=== PATIENT | female | born 1940 | race Two or more races ===

== ENCOUNTER 2021-07-04 11:27 | Emergency (ER) | payer MEDICARE, OTHER ==
[~2021-07-04] VITALS: Ht 157.5 cm; Wt 62.1 kg
--- NOTE | 2021-07-04 11:33 | NUR ---
BIB [facility] FROM HOME PT C/O INCREASED ANXIETY, HYPERVENTILATING WITH CARPAL SPASM UPON EMS ARRIVAL.
[2021-07-04] MEDS ORDERED: LORAZEPAM 1 MG TABLET ONE (11:39)
[2021-07-04] MEDS ORDERED: LORAZEPAM 1 MG TABLET PO ONE (12:00)
--- NOTE | 2021-07-04 12:12 | NUR ---
URINE COLLECTED AND SENT TO LAB.
[2021-07-04] MEDS ORDERED: ZOLP5TAB2 PO (12:44)
[2021-07-04] MEDS ORDERED: PILO5TAB10 PO (12:44)
[2021-07-04] MEDS ORDERED: LORA-259 PO (12:45)
--- NOTE | 2021-07-04 13:03 | NUR ---
PT WAS GIVEN AND UNDERSTOOD DISCHARGE INSTRUCTIONS. PT WAS A&OX4 AND STABLE. VITAL SIGNS WITHIN NORMAL LIMITS.
[2021-07-04 13:04] VITALS: BP 143/71
== END 2021-07-04 13:03 | disposition home or self-care (01) ==
LOC: ER 11:34
DX: F41.9 Anxiety disorder, unspecified (principal); I10 Essential (primary) hypertension; Z88.1 Allergy status to other antibiotic agents; Z60.2 Problems related to living alone; Z79.899 Other long term (current) drug therapy